=== PATIENT | male | born 1990 | race Caucasian/White ===

== ENCOUNTER 2023-06-22 19:14 | Emergency (ER) | payer OTHER, SELFPAY ==
[2023-06-22 19:19] VITALS: BP 114/84; PULSE 88; RESP 22; TEMP 36.9; O2SAT 99
--- NOTE | 2023-06-22 19:29 | XR_ITS ---
The [address] [address] Patient Name: RADHA PRATT MRN: [id number] date: 1990 Sex: M Assigned Patient Location: ER Current Patient Location: ED.MAIN Accession/Order Number: [id number] Exam Date: 06/22/2023 19:40 Report Date: 06/22/2023 20:51 At the request of: ELISEO JAUREGUI Procedure: XR hand RT min 3V EXAM: XR hand RT min 3V HISTORY: pain right hand COMPARISON: None. TECHNIQUE: 3 view study FINDINGS: There are transverse fractures of the third, fourth, and fifth metacarpals. The fourth metacarpal fracture is comminuted. Third and fourth metacarpal fractures show apex posterior angulation with lateral offset of the distal fracture fragments. Alignment of the fifth metacarpal fracture is anatomic. There is extensive soft tissue trauma. XR/XR hand RT min 3V IMPRESSION: Fractures of the third, fourth, and fifth metacarpals considered to be open. Electronically authenticated by: Morris MCKNIGHT Date: 06/22/2023 20:51
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
[2023-06-22 20:35] LABS: Basophils Percent Auto 0.4 % (0.2-2.0); Eosinophils Absolute Auto 0.2 10^3/uL (0.0-0.7); Eosinophils Percent Auto 2.3 % (0.9-7.0); Hematocrit 43.1 % (42.0-54.0); Hemoglobin 15.1 g/dL (14.0-18.0); Immature Granulocytes Abs Auto 0.04 10^3/uL (0.00-0.03); Immature Granulocytes Pct Auto 0.5 % (0.0-0.5); Lymphocytes Absolute Auto 3.7 10^3/uL (1.2-3.8); Lymphocytes Percent Auto 45.1 % (20.5-60.0); Mean Corpuscular Hemoglobin 31.7 pg (25.9-34.0); Mean Corpuscular Volume 90.4 fL (80.0-94.0); Mean Platelet Volume 9.6 fL (9.5-13.5); Monocytes Absolute Auto 0.8 10^3/uL (0.3-0.8); Monocytes Percent Auto 9.8 % (1.7-12.0); Neutrophils Absolute Auto 3.4 10^3/uL (1.4-6.5); Neutrophils Percent Auto 41.9 % (43.0-75.0); Platelet Count 264 10^3/uL (150-450); Red Blood Count 4.77 10^6/uL (4.70-6.10); Red Cell Distribution Width 12.1 % (11.0-15.0); White Blood Count 8.2 10^3/uL (4.0-11.0)
[2023-06-22 20:44] LABS: Anion Gap 13.2; BUN Creatinine Ratio 14.8; Carbon Dioxide 26.6 mmol/L (21.0-32.0); Chloride 103 mmol/L (98-107); Estimated GFR (African America >60 (>=60); Estimated GFR (Non-African Ame >60 (>=60); Glucose 109 mg/dL (74-106); Potassium 3.8 mmol/L (3.5-5.1); Sodium 139 mmol/L (136-145)
[2023-06-22 20:49] LABS: Partial Thromboplastin Time 25.9 sec (22.3-36.2); Prothrombin Time 10.6 sec (9.0-11.6)
[2023-06-22] MEDS: ADACEL DIPH,PERTUSS(ACELL),TET VAC/PF 0.5 ML ADULT SYRINGE IM (21:09)
[2023-06-22] MEDS: OXYCODONE HCL/ACETAMINOPHEN 5MG/325MG 1 TAB PO (21:09)
[2023-06-22] MEDS: LIDOCAINE HCL 2% PF 100 MG/5 ML VIAL 10 ML INJ (21:11)
[2023-06-22] MEDS: SODIUM CHLORIDE 0.9% IRRIG SOLUTION 1,000 ML BOTTLE 1000 ML IRR (21:12)
[2023-06-22] MEDS: OXYCODONE HCL/ACETAMINOPHEN 5MG/325MG 2 TAB PO (21:17)
--- NOTE | 2023-06-22 21:23 | PC.NURSE ---
Assisted Levi HASTINGS with splinting affected extremity Pt and his mother educated extensively on care for the wound, plans for tomorrow etc. Appointment is schheduled with Dr. Posey at 8am Pt and his mom both educated on pt not eating or drinking after midnight Sending home 2 percocet to go, educated on the administration of these pills as well as the prescriptions that were sent to pharmacy A work note was also written out Pt and his mother denied further needs or questions and are ready for discharge at the time of antibiotic completion
== END 2023-06-22 21:39 | disposition home or self-care (01) ==
PROVIDERS: Personal Emergency Response Attendant; Emergency Provider Internal Medicine
DX: S62.322B Displaced fracture of shaft of third metacarpal bone, right hand, initial encounter for open fracture (principal); V03.00XA Pedestrian on foot injured in collision with car, pick-up truck or van in nontraffic accident, initial encounter; F84.5 Asperger's syndrome; Z23 Encounter for immunization
CPT/HCPCS: 12002; 36415; 73130; 80048; 85025; 85610; 85730; 90471; 90715; 96374; 99285

== ENCOUNTER 2023-06-30 09:39 | Day surgery (SDC) | payer OTHER, SELFPAY ==
[2023-06-30] VITALS (13 sets, daily range): BP systolic 116–140; BP diastolic 75–91; PULSE 78–111; RESP 12–18; TEMP 36.2–36.8; O2SAT 91–98; BMI 31.7
--- NOTE | 2023-06-30 | XR_ITS ---
The [address] [address] Patient Name: RADHA PRATT MRN: [id number] date: 1990 Sex: M Assigned Patient Location: MS Current Patient Location: [facility] Accession/Order Number: [id number] Exam Date: 06/30/2023 20:40 Report Date: 07/01/2023 08:58 At the request of: SAROJ BAUTISTA Procedure: XR hand RT 2V EXAM: XR hand RT 2V HISTORY: intraoperative imaging COMPARISON: Same day TECHNIQUE: 4 intraprocedural images FINDINGS: 4 Intraprocedural images demonstrate reduction and pinning of third fourth and fifth metacarpal fractures. placement of 2 wires across the third metacarpal, 2 wires across the fourth metacarpal with single external fixation wire across the fifth metacarpal XR/XR hand RT 2V IMPRESSION: Reduction and pinning of metacarpal fractures Electronically authenticated by: KEARA SOLIS Date: 07/01/2023 08:58
--- NOTE | 2023-06-30 09:55 | XR_ITS ---
The [address] [address] Patient Name: RADHA PRATT MRN: [id number] date: 1990 Sex: M Assigned Patient Location: RAD Current Patient Location: RAD Accession/Order Number: [id number] Exam Date: 06/30/2023 09:45 Report Date: 06/30/2023 10:34 At the request of: SAROJ BAUTISTA Procedure: XR hand RT min 3V STUDY: XR hand RT min 3V, [id number] HISTORY: Open nondisplaced metacarpal bone right hand COMPARISON: Right hand x-rays 06/22/2023. FINDINGS: Overlying cast material obscures fine bony detail. Similar alignment and degree of displacement at the third and fifth metacarpal fractures. There is worsening dorsal and ulnar displacement of the fourth metacarpal which is now displaced by approximately 4/5 shaft width (previously one third shaft width). The vertical fracture component of the base of the fourth metacarpal remain similar. Overall alignment remains similar. XR/XR hand RT min 3V IMPRESSION: Worsening displacement of the fourth metacarpal fracture. The remaining fractures are similar. Electronically authenticated by: DION SILVA Date: 06/30/2023 10:34
[2023-06-30 11:48] LABS: Basophils Percent Auto 0.5 % (0.2-2.0); Eosinophils Absolute Auto 0.2 10^3/uL (0.0-0.7); Eosinophils Percent Auto 2.1 % (0.9-7.0); Hematocrit 43.5 % (42.0-54.0); Hemoglobin 14.8 g/dL (14.0-18.0); Immature Granulocytes Abs Auto 0.04 10^3/uL (0.00-0.03); Immature Granulocytes Pct Auto 0.5 % (0.0-0.5); Lymphocytes Absolute Auto 3.2 10^3/uL (1.2-3.8); Lymphocytes Percent Auto 39.9 % (20.5-60.0); Mean Corpuscular Hemoglobin 31.1 pg (25.9-34.0); Mean Corpuscular Volume 91.4 fL (80.0-94.0); Mean Platelet Volume 9.5 fL (9.5-13.5); Monocytes Absolute Auto 0.6 10^3/uL (0.3-0.8); Monocytes Percent Auto 7.8 % (1.7-12.0); Neutrophils Percent Auto 49.2 % (43.0-75.0); Platelet Count 313 10^3/uL (150-450); Red Blood Count 4.76 10^6/uL (4.70-6.10); Red Cell Distribution Width 11.9 % (11.0-15.0); White Blood Count 8.1 10^3/uL (4.0-11.0)
--- NOTE | 2023-06-30 12:10 | ECG_ITS ---
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
[2023-06-30 12:21] LABS: Anion Gap 9.5; BUN Creatinine Ratio 17.5; Calcium 9.4 mg/dL (8.5-10.1); Carbon Dioxide 30.2 mmol/L (21.0-32.0); Chloride 102 mmol/L (98-107); Estimated GFR (African America >60 (>=60); Estimated GFR (Non-African Ame >60 (>=60); Glucose 92 mg/dL (74-106); Potassium 3.7 mmol/L (3.5-5.1); Sodium 138 mmol/L (136-145)
[2023-06-30] MEDS: LACTATED RINGER'S SOLUTION 1,000 ML 50 ML IV ×2 (18:17→21:14)
[2023-06-30] MEDS: BUPIVACAINE HCL 0.5% PF 50 MG/10 ML VIAL INJ (20:55)
--- NOTE | 2023-06-30 22:01 | PM.ORPRC ---
Procedure Note Date of procedure: 06/30/23 Pre-op diagnosis: 1. R.3rd metacarpal fracture2. R.4th metacarpal fx.3. R.5th metacarpal fx Post-op diagnosis: same as pre-op Procedure: Operations performed: 1. Right third metacarpal percutaneous pinning 2. Right fourth metacarpal fracture percutaneous pinning 3. Right fifth metacarpal fracture percutaneous pinning 4. Irrigation and debridement right hand wound Operative procedure: After informed consent was obtained the patient was brought to the operating room where a general anesthetic was administered. A well-padded proximal arm tourniquet was placed. Sutures from the prior dorsal hand wound were removed. The right hand was prepped and draped in the usual sterile fashion. Attention was turned closed reduction of the fifth metacarpal fracture. This was performed with manipulation and traction. A 0.625 K wire was placed at the head of the metacarpal and introduced into the metacarpal canal across the fracture site into the base of the metacarpal. X-rays in multiple planes revealed a reduced fracture and appropriate K wire placement. Next the third metacarpal fracture was reduced in a similar fashion. A K wire was placed in the similar fashion through the metacarpal head traversing the fracture. A second K wire was placed on the shaft and x-rays revealed a reduced fracture with appropriate K wire placement. In a similar fashion the fourth metacarpal fracture was reduced and 2 K wires were driven through the head of the metacarpal into the shaft crossing the fracture site to the base of the fourth metacarpal. Final x-rays in multiple planes revealed reduced fractures of the third, fourth, and fifth metacarpals with appropriate K wire placement. The wound traversing the dorsum of the hand was next irrigated and then closed in simple fashion with nylon suture. Sterile dressing was placed. A well-padded volar fiberglass splint was placed. Patient was awakened and brought to the recovery room in stable condition. There were no intraoperative or immediate postoperative complications. Anesthesia: General-LMA Surgeon: Houston Posey Apparel Patternmaker: Elvira Brown Estimated blood loss (mL): 15 Pathology: none sent Condition: stable Disposition: PACU
== END 2023-06-30 23:47 | disposition home or self-care (01) ==
LOC: RAD 17:01 → MS 17:03
PROVIDERS: Visit Provider Orthopaedic Surgery
PROC: (CPT 01820; principal; 2023-06-30 18:00)
DX: S62.306B Unspecified fracture of fifth metacarpal bone, right hand, initial encounter for open fracture (principal); S62.304B Unspecified fracture of fourth metacarpal bone, right hand, initial encounter for open fracture; S62.302B Unspecified fracture of third metacarpal bone, right hand, initial encounter for open fracture; X58.XXXA Exposure to other specified factors, initial encounter
CPT/HCPCS: 01820; 26608 ×3; 36415; 51798; 73120; 73130; 76000; 80048; 85025; 93005; J2704

== ENCOUNTER 2023-07-07 10:08 | Outpatient (OUT) | payer OTHER, SELFPAY ==
--- NOTE | 2023-07-07 | XR_ITS ---
The [address] [address] Patient Name: RADHA RPATT MRN: [id number] date: 1990 Sex: M Assigned Patient Location: RAD Current Patient Location: Accession/Order Number: [id number] Exam Date: 07/07/2023 10:32 Report Date: 07/08/2023 07:26 At the request of: SAROJ BAUTISTA Procedure: XR hand RT min 3V EXAM: XR hand RT min 3V HISTORY: S62.306B, S62.304B, S62.302B COMPARISON: 06/30/2023 TECHNIQUE: Routine views of the XR hand RT min 3V FINDINGS/ XR/XR hand RT min 3V IMPRESSION: 1. Interval pinning of the near-anatomic alignment third through fifth metacarpal fractures. No new fractures are visualized. No evidence for hardware complication. Normal mineralization. 2. Dorsal hand swelling. 3. Normal joint spacing. Electronically authenticated by: NARDA MORRISON Date: 07/08/2023 07:26
== END 2023-07-07 10:09 | disposition home or self-care (01) ==
LOC: RAD 10:09
PROVIDERS: Visit Provider Orthopaedic Surgery
DX: S62.306B Unspecified fracture of fifth metacarpal bone, right hand, initial encounter for open fracture (principal); S62.304B Unspecified fracture of fourth metacarpal bone, right hand, initial encounter for open fracture; S62.302B Unspecified fracture of third metacarpal bone, right hand, initial encounter for open fracture; X58.XXXA Exposure to other specified factors, initial encounter
CPT/HCPCS: 73130

== ENCOUNTER 2023-07-14 09:56 | Outpatient (OUT) | payer OTHER, SELFPAY ==
--- NOTE | 2023-07-14 10:06 | XR_ITS ---
The [address] [address] Patient Name: RADHA PRATT MRN: [id number] date: 1990 Sex: M Assigned Patient Location: RAD Current Patient Location: RAD Accession/Order Number: [id number] Exam Date: 07/14/2023 10:01 Report Date: 07/14/2023 13:35 At the request of: SAROJ BAUTISTA Procedure: XR hand RT min 3V PROCEDURE: XR hand RT min 3V DATE: 07/14/2023 9:01 AM CDT COMPARISONS: 07/07/2023 CLINICAL INDICATION: Open Fracture Of Metacarpal right hand S62.306B FINDINGS: Slightly displaced nonangulated fracture of the third metacarpal again identified. Essentially nonangulated, nondisplaced fracture fourth metacarpal again identified. Minimally angulated minimally displaced irregular transverse fracture fifth metacarpal again identified. Fractures are fixed by longitudinal pins, stable from previous exam Images are limited somewhat by overlying splint material Bone island noted of the distal radius, stable.. XR/XR hand RT min 3V IMPRESSION: Stable postoperative right hand radiographs. Electronically authenticated by: LG NIXON Date: 07/14/2023 13:35
== END 2023-07-14 09:57 | disposition home or self-care (01) ==
LOC: RAD 09:56
PROVIDERS: Visit Provider Orthopaedic Surgery
DX: S62.306B Unspecified fracture of fifth metacarpal bone, right hand, initial encounter for open fracture (principal); S62.304B Unspecified fracture of fourth metacarpal bone, right hand, initial encounter for open fracture; S62.302B Unspecified fracture of third metacarpal bone, right hand, initial encounter for open fracture
CPT/HCPCS: 73130

== ENCOUNTER 2023-08-04 08:07 | Outpatient (OUT) | payer OTHER, SELFPAY ==
--- NOTE | 2023-08-04 08:09 | XR_ITS ---
The [address] [address] Patient Name: RADHA PRATT MRN: [id number] date: 1990 Sex: M Assigned Patient Location: [facility] Current Patient Location: [facility] Accession/Order Number: [id number] Exam Date: 08/04/2023 08:12 Report Date: 08/04/2023 18:51 At the request of: SAROJ BAUTISTA Procedure: XR hand RT min 3V EXAM: XR hand RT min 3V HISTORY: open Nondisplaced Fracture 5th Metacarpal Bone Right Hand . Follow-up study. COMPARISON: 07/14/2023 TECHNIQUE: 3 views of the right hand were obtained. FINDINGS: The hand is in a palmar mold. Postsurgical changes are present, with multiple K wires fixating the fractures of the third fourth and fifth metacarpal bones. Position and alignment of the fracture fragments remain unchanged. There is evidence of very early osseous healing. No additional fracture or dislocation is identified. XR/XR hand RT min 3V IMPRESSION: Early osseous healing of the fixated fractures involving the metacarpal bones. K wires are in place. Electronically authenticated by: AAKASH GROSSMAN Date: 08/04/2023 18:51
== END 2023-08-04 08:08 | disposition home or self-care (01) ==
LOC: RAD 08:07
PROVIDERS: Visit Provider Orthopaedic Surgery
DX: S62.306B Unspecified fracture of fifth metacarpal bone, right hand, initial encounter for open fracture (principal); S62.304B Unspecified fracture of fourth metacarpal bone, right hand, initial encounter for open fracture; S62.302B Unspecified fracture of third metacarpal bone, right hand, initial encounter for open fracture
CPT/HCPCS: 73130

== ENCOUNTER 2023-08-13 13:54 | Outpatient (RCR) | payer OTHER, SELFPAY | END 2023-09-25 15:15 | disposition home or self-care (01) | LOC: OT 13:54 | PROVIDERS: Visit Provider Orthopaedic Surgery | DX: S62.302D Unspecified fracture of third metacarpal bone, right hand, subsequent encounter for fracture with routine healing (principal) | CPT/HCPCS: 97018; 97140; 97166; 97530 ==

== ENCOUNTER 2023-09-01 08:48 | Outpatient (OUT) | payer OTHER, SELFPAY ==
--- NOTE | 2023-09-01 | XR_ITS ---
The [place] [id number] Patient Name: RADHA PRATT MRN: [id number] date: 1990 Sex: M Assigned Patient Location: RAD Current Patient Location: RAD Accession/Order Number: [id number] Exam Date: 09/01/2023 09:03 Report Date: 09/01/2023 21:19 At the request of: SAROJ BAUTISTA Procedure: XR hand RT min 3V EXAM: XR hand RT min 3V HISTORY: open nondisplaced fracture of third metacarpal of right hand COMPARISON: 08-04-2023 FINDINGS: 3 radiographs of the right hand were obtained. Interval removal of percutaneous fixation pins. Again noted, there are minimally displaced fractures of the third metacarpal, fourth metacarpal and fifth metacarpal shafts. There is interval callus and periosteal new bone formation. Mild degenerative changes to the hand. 8 mm sclerotic density in the distal radius, most consistent with a bone island. XR/XR hand RT min 3V IMPRESSION: Minimally displaced fractures of the third metacarpal, fourth metacarpal, and fifth metacarpal shafts. Interval callus and periosteal new bone formation. Electronically authenticated by: NELA HOLT Date: 09/01/2023 21:19
== END 2023-09-01 08:49 | disposition home or self-care (01) ==
LOC: RAD 08:49
PROVIDERS: Visit Provider Orthopaedic Surgery
DX: S62.302B Unspecified fracture of third metacarpal bone, right hand, initial encounter for open fracture (principal); S62.304B Unspecified fracture of fourth metacarpal bone, right hand, initial encounter for open fracture; S62.306B Unspecified fracture of fifth metacarpal bone, right hand, initial encounter for open fracture
CPT/HCPCS: 73130

== ENCOUNTER 2023-10-13 08:46 | Outpatient (OUT) | payer OTHER, SELFPAY ==
--- NOTE | 2023-10-13 | XR_ITS ---
The [address] [address] Patient Name: RADHA PRATT MRN: [id number] date: 1990 Sex: M Assigned Patient Location: RAD Current Patient Location: RAD Accession/Order Number: [id number] Exam Date: 10/13/2023 08:47 Report Date: 10/13/2023 09:26 At the request of: SAROJ BAUTISTA Procedure: XR hand RT min 3V PROCEDURE: XR hand RT min 3V COMPARISON: 09/01/2023 HISTORY: RIGHT HAND PAIN FINDINGS: BONES:Again demonstrated are transverse fractures across the mid diaphysis of the third fourth and fifth metacarpals with increase in bony bridging and bone healing. There is incomplete bony fusion of the third metacarpal. Focal sclerosis of the distal radius, an enostosis SOFT TISSUES:Negative. No visible soft tissue swelling. EFFUSION:None visible. OTHER: Negative. XR/XR hand RT min 3V IMPRESSION: Stable healing fractures of the third fourth and fifth metacarpals with incomplete bony bridging at the third metacarpal fracture Electronically authenticated by: KEARA SOLIS Date: 10/13/2023 09:26
--- OUTSIDE RECORDS SUMMARY | 2023-10-13 08:49 | XMS_ITS | CCD ---
Author Name Unknown Address [address] [place] [address] Organization [facility] Care Team Providers Care Crm Solution Architect Name Role Phone House DO, Sr Blanca Stephenson Primary Care Provider OTONIEL RAYMOND Referring Unavailable HOUSE, SR BLANCA Stephenson Primary Care Unavailable OTONIEL RAYMOND Referring Unavailable HOUSE, SR BLANCA Stephenson Primary Care Unavailable MISC, DR BERMUDEZ Admitting Unavailable MISC, DR BERMUDEZ Attending Unavailable REQUEST, DR SIMPSON LISTED Primary Care Unavaila ble MISC, DR BERMUDEZ Consulting Unavailable HOUSE, DR RIOS Admitting Unavailable HOUSE, DR RIOS Attending Unavailable HOUSE, DR RIOS Primary Care Unavailable HOUSE, DR RIOS Consulting Unavailable Problems Active Problems Problem Classification Problem Date Documented Da te Episodic/Chronic Anxiety disorders (1 source) Mixed obsessional thoughts and acts; Translations: [MIXED OBSESSIONAL THOUGHTS AND ACTS] Onset: 02-20-2022 Chronic Disorders usually diagnosed in infancy, childhood, or adolescence (5 sources) Disinhibited attachment disorder of childhood; 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] Onset: 02-16-2022 Chronic Past or Other Problems Problem Classification Problem Date Documented Da te Episodic/Chronic Developmental disorders (1 source) Borderline intellectual functioning; Translations: [BORDERLINE INTELLECTUAL FUNCTIONING] Onset: 02-20-2022 Episodic Other aftercare (1 source) 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 Teena Aguilar Basophils/100 WBC (Bld) 0.5 % Normal 0.2-2.0 [facility] Comment on above: Performed By: #### C BC #### [facility] [address] [place] [address] Dr. Teena Aguilar EO # 0.2 103/ul Normal 0.0-0.7 [facility] Comment on above: Performed By: #### C BC #### [facility] [address] [place] [address] Dr. Teena Aguilar Eosinophils/100 WBC (Bld) 3.3 % Normal 0.9-7.0 [facility] Comment on above: Performed By: #### C BC #### [facility] [address] [place] [address] Dr. Teena Aguilar Erythrocyte distribution width (RBC) [Ratio] 12.0 % Normal 11.0-15.0 [facility] Comment on above: Performed By: #### C BC #### [facility] [address] [place] [address] Dr. Teena Aguilar Hematocrit (Bld) [Volume fraction] 43.2 % Normal 42.0-54.0 [facility] Comment on above: Performed By: #### C BC #### [facility] [address] [place] [address] Dr. Teena Aguilar Hemoglobin (Bld) [Mass/Vol] 15.1 g/dL Normal 14.0-18.0 [facility] Comment on above: Performed By: #### C BC #### [facility] [address] [place] [address] Dr. Teena Aguilar IG # 0.01 10e3/ul Normal 0.00-0.03 [facility] Comment on above: Performed By: #### C BC #### [facility] [address] [place] [address] Dr. Teena Aguilar IG % 0.2 % Normal 0.0-0.5 [facility] Comment on above: Performed By: #### C BC #### [facility] [address] [place] [address] Dr. Teena Aguilar LYMPH # 3.1 103/ul Normal 1.2-3.8 [facility] Comment on above: Performed By: #### C BC #### [facility] [address] [place] [address] Dr. Teena Aguilar Lymphocytes/100 WBC (Bld) 49.1 % Normal 20.5-60.0 [facility] Comment on above: Performed By: #### C BC #### [facility] [address] [place] [address] Dr. Teena Aguilar MANUAL DIFF REQ NO Normal [facility] Comment on above: Performed By: #### C BC #### [facility] [address] [place] [address] Dr. Teena Aguilar MCH (RBC) [Entitic mass] 31.1 pg Normal 25.9-34.0 [facility] Comment on above: Performed By: #### C BC #### [facility] [address] [place] [address] Dr. Teena Aguilar MCHC (RBC) [Mass/Vol] 35.0 g/dL Normal 29.9-35.2 [facility] Comment on above: Performed By: #### C BC #### [facility] [address] [place] [address] Dr. Teena Aguilar MCV (RBC) [Entitic vol] 89.1 fL Normal 80.0-94.0 [facility] Comment on above: Performed By: #### C BC #### [facility] [address] [place] [address] Dr. Teena Aguilar MONO # 0.4 103/ul Normal 0.3-0.8 [facility] Comment on above: Performed By: #### C BC #### [facility] [address] [place] [address] Dr. Teena Aguilar Monocytes/100 WBC (Bld) 6.8 % Normal 1.7-12.0 [facility] Comment on above: Performed By: #### C BC #### [facility] [address] [place] [address] Dr. Teena Aguilar NEUT # 2.6 103/ul Normal 1.4-6.5 [facility] Comment on above: Performed By: #### C BC #### [facility] [address] [place] [address] Dr. Teena Aguilar Neutrophils/100 WBC (Bld) 40.1 % Critically low 43.0-7 5.0 [facility] Comment on above: Performed By: #### C BC #### [facility] [address] [place] [address] Dr. Teena Aguilar Platelet mean volume (Bld) [Entitic vol] 9.7 fL Normal 9.5-13.5 [facility] Comment on above: Performed By: #### C BC #### [facility] [address] [place] [address] Dr. Teena Aguilar PLT 272 103/ul Normal 150-450 [facility] Comment on above: Performed By: #### C BC #### [facility] [address] [place] [address] Dr. Teena Aguilar RBC 4.85 106/ul Normal 4.70-6.10 [facility] Comment on above: Performed By: #### C BC #### [facility] [address] [place] [address] Dr. Teena Aguilar WBC 6.3 103/ul Normal 4.0-11.0 [facility] Comment on above: Performed By: #### C BC #### [facility] [address] [place] [address] Dr. Teena Aguilar PROF 14(COMP METB)on 023 Albumin [Mass/Vol] 3.9 g/dL Normal 3.4-5.0 [facility] Comment on above: Performed By: #### T 4, TSH, CMP #### [facility] [address] [place] [address] Dr. Teena Aguilar Albumin/Globulin [Mass ratio] 1.0 {ratio} Normal [facility] Comment on above: Performed By: #### T 4, TSH, CMP #### [facility] [address] [place] [address] Dr. Teena Aguilar ALP [Catalytic activity/Vol] 66 U/L Normal 46-116 [facility] Comment on above: Performed By: #### T 4, TSH, CMP #### [facility] [address] [place] [address] [address] Teena Aguilar ALT [Catalytic activity/Vol] 34 U/L Normal 16-63 [facility] Comment on above: Performed By: #### T 4, TSH, CMP #### [facility] [address] [place] [address] [address] Teena Aguilar Anion gap [Moles/Vol] 12.6 mmol/L Normal [facility] Comment on above: Performed By: #### T 4, TSH, CMP #### [facility] [address] [place] [address] Dr. Teena Aguilar AST [Catalytic activity/Vol] 16 U/L Normal 15-37 [facility] Comment on above: Performed By: #### T 4, TSH, CMP #### [facility] [address] [place] [address] Dr. Teena Aguilar Bilirubin [Mass/Vol] 0.3 mg/dL Normal 0.2-1.0 [facility] Comment on above: Performed By: #### T 4, TSH, CMP #### [facility] [address] [place] [address] Dr. Teena Aguilar Calcium [Mass/Vol] 9.3 mg/dL Normal 8.5-10.1 [facility] Comment on above: Performed By: #### T 4, TSH, CMP #### [facility] [address] [place] [address] Dr. Teena Aguilar Chloride [Moles/Vol] 102 mmol/L Normal 98-107 [facility] Comment on above: Performed By: #### T 4, TSH, CMP #### [facility] [address] [place] [address] Dr. Teena Aguilar CO2 [Moles/Vol] 25.2 mmol/L Normal 21.0-32.0 [facility] Comment on above: Performed By: #### T 4, TSH, CMP #### [facility] [address] [place] [address] [address] Teena Aguilar Creatinine [Mass/Vol] 0.95 mg/dL Normal 0.70-1.30 [facility] Comment on above: Performed By: #### T 4, TSH, CMP #### [facility] [address] [place] [address] [address] Teena Aguilar EGFR-AF ENGLISH >60 Normal >=60 [facility] Comment on above: Performed By: #### T 4, TSH, CMP #### [facility] [address] [place] [address] [address] Teena Aguilar EGFR-NON AF ENGLISH >60 Normal >=60 [facility] Comment on above: Performed By: #### T 4, TSH, CMP #### [facility] [address] [place] [address] [address] Teena Aguilar Globulin (S) [Mass/Vol] 3.9 g/dL Normal [facility] Comment on above: Performed By: #### T 4, TSH, CMP #### [facility] [address] [place] [address] Dr. Teena Aguilar Glucose [Mass/Vol] 153 mg/dL Critically high 74-106 [facility] Comment on above: Performed By: #### T 4, TSH, CMP #### [facility] [address] [place] [address] [address] Teena Aguilar Potassium [Moles/Vol] 3.8 mmol/L Normal 3.5-5.1 [facility] Comment on above: Performed By: #### T 4, TSH, CMP #### [facility] [address] [place] [address] [address] Teena Aguilar Protein [Mass/Vol] 7.8 g/dL Normal 6.4-8.2 [facility] Comment on above: Performed By: #### T 4, TSH, CMP #### [facility] [address] [place] [address] Dr. Teena Aguilar Sodium [Moles/Vol] 136 mmol/L Normal 136-145 [facility] Comment on above: Performed By: #### T 4, TSH, CMP #### [facility] [address] [place] [address] Dr. Teena Aguilar Urea nitrogen [Mass/Vol] 22.0 mg/dL Critically high 7.0-18 .0 [facility] Comment on above: Performed By: #### T 4, TSH, CMP #### [facility] [address] [place] [address] Dr. Teena Aguilar Urea nitrogen/Creatinine [Mass ratio] 23.2 mg/mg Normal [facility] Comment on above: Performed By: #### T 4, TSH, CMP #### [facility] [address] [place] [address] Dr. Teena Aguilar T4on 01-10-2023 T4 [Mass/Vol] 4.20 ug/dL Critically low 4.50-12.10 [facility] Comment on above: Performed By: #### T 4, TSH, CMP #### [facility] [address] [place] [address] Dr. Teena Aguilar TSHon 01-10-2023 TSH 3.652 uIU/mL Normal 0.358-3.740 [facility] Comment on above: Performed By: #### T 4, TSH, CMP #### [facility] [address] [place] [address] Dr. Teena Aguilar Miscellaneouson 05-17-2022 Send Out Report (NOTE) Normal [facility] Comment on above: Result Comment: Catecholamines Fractionated (Epinephrine, Norepinephrine), Plasma Epinephrine See Note pg/mL (Ref Interval: 10-200) Unable to quantitate due to unknown interfering substance(s) in the patient specimen. The test results for this specimen indicate the presence of interfering substances. Antihypertensive medications such as labetalol hinder the measurement of catecholamines in this assay. Quantity not sufficient to repeat test. Norepinephrine 184 pg/mL (Ref Interval: 80-520) Catecholamine Interpretation See Note INTERPRETIVE INFORMATION: Catecholamine Epi/Nor, Plasma Small increases in catecholamines (less than 2 times the upper reference limit) usually are the result of physiological stimuli, drugs, or improper specimen collection. Significant elevation of one or more catecholamines (2 or more times the upper reference limit) is associated with an increased probability of a neuroendocrine tumor. Measurement of plasma or urine fractionated metanephrines provides better diagnostic sensitivity than measurement of catecholamines. Higher catecholamine concentrations are observed in specimens collected from upright or standing adults. Epinephrine may be increased by approximately 20 percent; and norepinephrine increased up to 700 pg/mL. This test was developed and its performance characteristics determined by [facility] [employer]. It has not been cleared or approved by the [place] Food and Drug Administration. This test was performed in a CLIA certified laboratory and is intended for clinical purposes. IAUP Performed By: #### C MIS #### [facility] [address] [place] [address] Garbage Man: Yahir Fitzgerald MD Miscellaneouson 05-08-2022 Test Name [id number] Normal [facility] Comment on above: Performed By: #### C MIS #### [facility] [address] [place] [address] Garbage Man: Yahir Fitzgerald MD Gabapentinon 05-07-2022 Gabapentin <0.5 Low 2.0-20.0 [facility] Comment on above: Result Comment: (NOT E) INTERPRETIVE INFORMATION: Gabapentin Therapeutic Range: 2 - 20 ug/mL Toxic: Not well established Pharmacokinetics of gabapentin vary widely among patients, particularly those with compromised renal function. Adverse effects may include somnolence, dizziness, ataxia, and fatigue. This test was developed and its performance characteristics determined by [facility] [employer]. It has not been cleared or approved by the [place] Food and Drug Administration. This test was performed in a CLIA certified laboratory and is intended for clinical purposes. Performed By: [facility] [address] [place] [address] Furniture Repair Technician: Marin Panchal MD, PhD Performed By: #### CRIS ARELLANO #### [facility] [address] [place], [place] [id number] Garbage Man: Tam Givens MD #### ACTH #### [facility] [address] [place] [address] Garbage Man: Doc Garces MD Serotoninon 05-07-2022 Serotonin <10 Low 50-220 [facility] Comment on above: Result Comment: (NOT E) TEST INFORMATION: Serotonin, Serum This test was developed and its performance characteristics determined by [employer]. It has not been cleared or approved by the [place] Food and Drug Administration. This test was performed in a CLIA certified laboratory and is intended for clinical purposes. Performed By: [facility] [employer] [address] [place] [address] Furniture Repair Technician: Marin Panchal MD, PhD Performed By: #### A CRIS CHENG #### [facility] [address] [place] [address] Garbage Man: Tam Givens MD #### ACTH #### [address] [id number] Garbage Man: Doc Garces MD Adrenocorticotropinon 2021 Adrenocorticotropin 7 pg/mL Normal 7-69 [facility] Comment on above: Performed By: #### A CRIS CHENG #### [facility] [address] [place], [place] [id number] Garbage Man: Tam Givens MD #### ACTH #### [address] [id number] Garbage Man: Doc Garces MD CBC AUTO DIFFon 02-16-2022 BASO # 0.0 103/ul Normal 0.0-0.1 [facility] Comment on above: Performed By: #### C BC #### [facility] [address] [place] [address] Dr. Teena Aguilar Basophils/100 WBC (Bld) 0.5 % Normal 0.2-2.0 [facility] Comment on above: Performed By: #### C BC #### [facility] [address] [place] [address] Dr. Teena Aguilar EO # 0.2 103/ul Normal 0.0-0.7 [facility] Comment on above: Performed By: #### C BC #### [facility] [address] [place] [address] Dr. Teena Aguilar Eosinophils/100 WBC (Bld) 3.0 % Normal 0.9-7.0 [facility] Comment on above: Performed By: #### C BC #### [facility] [address] [place] [address] Dr. Teena Aguilar Erythrocyte distribution width (RBC) [Ratio] 12.3 % Normal 11.0-15.0 [facility] Comment on above: Performed By: #### C BC #### [facility] [address] [place] [address] Dr. Teena Aguilar Hematocrit (Bld) [Volume fraction] 45.2 % Normal 42.0-54.0 [facility] Comment on above: Performed By: #### C BC #### [facility] [address] [place] [address] Dr. Teena Aguilar Hemoglobin (Bld) [Mass/Vol] 15.1 g/dL Normal 14.0-18.0 [facility] Comment on above: Performed By: #### C BC #### [facility] [address] [place] [address] Dr. Teena Aguilar IG # 0.01 10e3/ul Normal 0.00-0.03 [facility] Comment on above: Performed By: #### C BC #### [facility] [address] [place] [address] Dr. Teena Aguilar IG % 0.2 % Normal 0.0-0.5 [facility] Comment on above: Performed By: #### C BC #### [facility] [address] [place] [address] Dr. Teena Aguilar LYMPH # 3.0 103/ul Normal 1.2-3.8 [facility] Comment on above: Performed By: #### C BC #### [facility] [address] [place] [address] Dr. Teena Aguilar Lymphocytes/100 WBC (Bld) 50.0 % Normal 20.5-60.0 [facility] Comment on above: Performed By: #### C BC #### [facility] [address] [place] [address] Dr. Teena Aguilar MANUAL DIFF REQ NO Normal [facility] Comment on above: Performed By: #### C BC #### [facility] [address] [place] [address] Dr. Teena Aguilar MCH (RBC) [Entitic mass] 30.4 pg Normal 25.9-34.0 [facility] Comment on above: Performed By: #### C BC #### [facility] [address] [place] [address] Dr. Teena Aguilar MCHC (RBC) [Mass/Vol] 33.4 g/dL Normal 29.9-35.2 [facility] Comment on above: Performed By: #### C BC #### [facility] [address] [place] [address] Dr. Teena Aguilar MCV (RBC) [Entitic vol] 91.1 fL Normal 80.0-94.0 [facility] Comment on above: Performed By: #### C BC #### [facility] [address] [place] [address] Dr. Teena Aguilar MONO # 0.5 103/ul Normal 0.3-0.8 [facility] Comment on above: Performed By: #### C BC #### [facility] [address] [place] [address] Dr. Teena Aguilar Monocytes/100 WBC (Bld) 8.6 % Normal 1.7-12.0 [facility] Comment on above: Performed By: #### C BC #### [facility] [address] [place] [address] Dr. Teena Aguilar NEUT # 2.3 103/ul Normal 1.4-6.5 [facility] Comment on above: Performed By: #### C BC #### [facility] [address] [place] [address] Dr. Teena Aguilar Neutrophils/100 WBC (Bld) 37.7 % Critically low 43.0-7 5.0 [facility] Comment on above: Performed By: #### C BC #### [facility] [address] [place] [address] Dr. Teena Aguliar Platelet mean volume (Bld) [Entitic vol] 9.2 fL Critically low 9.5-13.5 [facility] Comment on above: Performed By: #### C BC #### [facility] [address] [place] [address] Dr. Teena Aguilar PLT 298 103/ul Normal 150-450 [facility] Comment on above: Performed By: #### C BC #### [facility] [address] [place] [address] Dr. Teena Aguilar RBC 4.96 106/ul Normal 4.70-6.10 [facility] Comment on above: Performed By: #### C BC #### [facility] [address] [place] [address] Dr. Teena Aguilar WBC 6.0 103/ul Normal 4.0-11.0 [facility] Comment on above: Performed By: #### C BC #### [facility] [address] [place] [address] Dr. Teena Aguilar GLYCOHEMOGLOBIN A1Con 2021 ADA RECOMMENDATION SEE BELOW Normal [facility] Comment on above: Result Comment: ADA RECOMMENDED LIMIT 4.0 - 6.0 ADA THERAPEUTIC TARGET < 7.0 ACTION SUGGESTED > 7.0 Performed By: #### A 1C #### [facility] [address] [place] [address] Dr. Teena Aguilar Glucose [Mass/Vol] 111 mg/dL Normal [facility] Comment on above: Performed By: #### A 1C #### [facility] [address] [place] [address] Dr. Teena Aguilar HbA1c (Bld) [Mass fraction] 5.5 % Normal 4.5-6.2 [facility] Comment on above: Performed By: #### A 1C #### [facility] [address] [place] [address] Dr. Teena Aguilar LIPID PROFILEon 02-16-2022 CHOL-HDL RATIO NORM SEE BELOW Normal [facility] Comment on above: Result Comment: 3.3 - 4.4 LOW RISK 4.4 - 7.1 AVERAGE RISK 7.1 - 11.0 MODERATE RISK >11.0 HIGH RISK Performed By: #### B MP, LIPID #### [facility] [address] [place] [address] Dr. Teena Aguilar Cholesterol [Mass/Vol] 205 mg/dL Critically high <=200 [facility] Comment on above: Performed By: #### B MP, LIPID #### [facility] [address] [place] [address] [address] Teena Aguilar Cholesterol in HDL [Mass/Vol] 49 mg/dL Normal 40-60 [facility] Comment on above: Performed By: #### B MP, LIPID #### [facility] [address] [address] [address] Teena Aguilar Cholesterol in LDL [Mass/Vol] 89.0 mg/dL Normal [facility] Comment on above: Performed By: #### B MP, LIPID #### [facility] [address] [place] [address] Dr. Teena Aguilar Cholesterol.total/Cholest neeraj in HDL [Mass ratio] 4.2 {ratio} Normal [facility] Comment on above: Performed By: #### B MP, LIPID #### [facility] [address] [place] [address] Dr. Teena Aguilar HDL NORMAL > or = 60 mg/dl - LOW CARDIOVASCULAR RISK <40 mg/dl - HIGH CARDIOVASCULAR RISK Normal [facility] Comment on above: Performed By: #### B MP, LIPID #### [facility] [address] [place] [address] Dr. Teena Aguilar LDL CALC NORMAL SEE BELOW Normal [facility] Comment on above: Result Comment: <100 mg/dl OPTIMAL 100 - 129 mg/dl NEAR OR ABOVE OPTIMAL 130 - 159 mg/dl BORDERLINE HIGH 160 - 189 mg/dl HIGH >190 mg/dl VERY HIGH Performed By: #### B MP, LIPID #### [facility] [address] [place] [address] Dr. Teena Aguilar Triglyceride [Mass/Vol] 335 mg/dL Critically high <=150 [facility] Comment on above: Performed By: #### B MP, LIPID #### [facility] [address] [place] [address] Dr. Teena Aguilar VLDL CALC 67.0 mg/dL Normal [facility] Comment on above: Performed By: #### B MP, LIPID #### [facility] [address] [place] [address] Dr. Teena Aguilar PROF CHEM 8 (BAS METB)on Anion gap [Moles/Vol] 11.0 mmol/L Normal [facility] Comment on above: Performed By: #### B MP, LIPID #### [facility] [address] [place] [address] Dr. Teena Aguilar Calcium [Mass/Vol] 9.1 mg/dL Normal 8.5-10.1 [facility] Comment on above: Performed By: #### B MP, LIPID #### [facility] [address] [place] [address] Dr. Teena Aguilar Chloride [Moles/Vol] 102 mmol/L Normal 98-107 [facility] Comment on above: Performed By: #### B MP, LIPID #### [facility] [address] [place] [address] Dr. Teena Aguilar CO2 [Moles/Vol] 30.3 mmol/L Normal 21.0-32.0 [facility] Comment on above: Performed By: #### B MP, LIPID #### [facility] [address] [place] [address] Dr. Teena Aguilar Creatinine [Mass/Vol] 0.96 mg/dL Normal 0.70-1.30 [facility] Comment on above: Performed By: #### B MP, LIPID #### [facility] [address] [place] [address] Dr. Teena Aguilar EGFR-AF ENGLISH >60 Normal >=60 [facility] Comment on above: Performed By: #### B MP, LIPID #### [facility] [address] [place] [address] Dr. Teena Aguilar EGFR-NON AF ENGLISH >60 Normal >=60 [facility] Comment on above: Performed By: #### B MP, LIPID #### [facility] [address] [place] [address] Dr. Teena Aguilar Glucose [Mass/Vol] 100 mg/dL Normal 74-106 [facility] Comment on above: Performed By: #### B MP, LIPID #### [facility] [address] [place] [address] Dr. Teena Aguilar Potassium [Moles/Vol] 4.3 mmol/L Normal 3.5-5.1 [facility] Comment on above: Performed By: #### B MP, LIPID #### [facility] [address] [address] [address] Teena Aguilar Sodium [Moles/Vol] 139 mmol/L Normal 136-145 [facility] Comment on above: Performed By: #### B MP, LIPID #### [facility] [address] [address] [address] Teena Aguilar Urea nitrogen [Mass/Vol] 19.0 mg/dL Critically high 7.0-18 .0 [facility] Comment on above: Performed By: #### B MP, LIPID #### [facility] [address] [address] [address] Teena Aguilar Urea nitrogen/Creatinine [Mass ratio] 19.8 mg/mg Normal [facility] Comment on above: Performed By: #### B MP, LIPID #### [facility] [address] [address] [address] Teena Aguilar Encounters Encounter Date Encounter Type Care Provider Facility Start: 01-19-2023 Encounter for genera l adult medical examination without abnormal findings DR BLANCA KUMAR [facility] Start: 01-10-2023 End: 01-11-[address] BLANCA KUMAR Facility:[facility] Start: 01-10-2023 End: 01-11-2023 Encounter for general adult medical examination without abnormal findings DR BLANCA KUMAR Facility:[facility] Start: 05-08-2022 End: 05-09-2022 [facility]ulatory [facility] Start: 05-08-2022 End: 05-08-2022 Subsequent hospital visit by physician Sr Kumar DO Work Phone: [facility] Start: 05-03-2022 End: 05-04-2022 ambulatory [facility] Start: 02-16-2022 End: 02-17-[address] DOCTOR WEST Facility:[facility] Plan of Treatment Date Care Activity Detail Author Start: 06-06-2022 Influenza vaccination Flu vaccine (# 1) [facility] Start: 2008 DTaP/Tdap/Td vaccine (1 - Tdap) DTaP/Tdap/Td vaccine (1 - Tdap) [employer] [facility] Start: 1989 COVID-19 Vaccine (#1) COVID-19 Vaccine (#1) [facility] End: 05-08-2022 MISCELLANEOUS TESTING [employer] Phone: Comment on above: Once for 1 Occurrenc es starting 05/08/2022 until 05/08/2022 Payers Date Payer Category Payer Unknown [id number] 1989 Unknown [id number] 1989 Unknown [id number] 1989 Unknown [id number] 1959 Private Health Insurance [id number] 1959 Unknown [id number] Social History Date Type Detail Facility Tobacco smoking stat [facility] Tobacco smoking consumption unknown [employer] Phone: Start: 1989 Sex Assigned At Not on file B ON [employer] Phone: Summary Purpose Family History No Family History Records FoundNo Family History Records Found Advance Directives No Advanced Directives Records FoundNo Advanced Directives Records Found Additional Source Comments Care Teams (unrecognized sec tion and content) [employer] Relationship Specialty Start Date End Date Sr Blanca Kumar DO [address] [place] [address] PCP - General Family Medicine 05/03/22 (unrecognized sect ion and content) No Status Records FoundNo Status Records Found INFORMATION SOURCE (unrecogn ized section and content) DATE CREATED AUTHOR 05/18/2022 [facility] DATE CREATED AUTHOR AUTHOR'S ESSIE BAXTER 01/21/2023 [facility] FOR RECORDS PERTAINING TO PATIENTS WHO ARE OR HAVE BEEN ENROLLED IN A CHEMICAL DEPENDENCY/SUBSTANCEABUSE PROGRAM, SOME INFORMATION MAY BE OMITTED. This clinical summary was aggregated from multiple sources. Caution should be exercised in using it in the provision of clinical care. This summary normalizes information from multiple sources, and as a consequence, information in this document may materially change the coding, format and clinical context of patient data. In addition, data may be omitted in some cases. CLINICAL DECISIONS SHOULD BE BASED ON THE PRIMARY CLINICAL RECORDS. [employer] [facility]. provides no warranty or guarantee of the accuracy or completeness of information in this document.
== END 2023-10-13 08:47 | disposition home or self-care (01) ==
LOC: RAD 08:46
PROVIDERS: Visit Provider Orthopaedic Surgery
DX: S62.306D Unspecified fracture of fifth metacarpal bone, right hand, subsequent encounter for fracture with routine healing (principal); S62.304D Unspecified fracture of fourth metacarpal bone, right hand, subsequent encounter for fracture with routine healing; S62.302D Unspecified fracture of third metacarpal bone, right hand, subsequent encounter for fracture with routine healing
CPT/HCPCS: 73130

== ENCOUNTER 2024-01-31 10:22 | Outpatient (OUT) | payer OTHER, SELFPAY ==
--- OUTSIDE RECORDS SUMMARY | 2024-01-31 10:25 | XMS_ITS | CCD ---
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 Teena Aguilar Basophils/100 WBC (Bld) 0.5 % Normal 0.2-2.0 [facility] Comment on above: Performed By: #### C BC #### [facility] [address] [place] [address] Dr. Teena Aguilar EO # 0.2 103/ul Normal 0.0-0.7 [facility] Comment on above: Performed By: #### C BC #### [facility] [address] [place] [address] Dr. Teena Aguilar Eosinophils/100 WBC (Bld) 3.3 % Normal 0.9-7.0 [facility] Comment on above: Performed By: #### C BC #### [facility] [address] [place] [address] Dr. Teena Aguilar Erythrocyte distribution width (RBC) [Ratio] 12.0 % Normal 11.0-15.0 [facility] Comment on above: Performed By: #### C BC #### [facility] [address] [place] [address] Dr. Teena Aguilar Hematocrit (Bld) [Volume fraction] 43.2 % Normal 42.0-54.0 [facility] Comment on above: Performed By: #### C BC #### [facility] [address] [place] [address] Dr. Teena Aguilar Hemoglobin (Bld) [Mass/Vol] 15.1 g/dL Normal 14.0-18.0 [facility] Comment on above: Performed By: #### C BC #### [facility] [address] [place] [address] Dr. Teena Aguilar IG # 0.01 10e3/ul Normal 0.00-0.03 [facility] Comment on above: Performed By: #### C BC #### [facility] [address] [place] [address] Dr. Teena Aguilar IG % 0.2 % Normal 0.0-0.5 [facility] Comment on above: Performed By: #### C BC #### [facility] [address] [place] [address] Dr. Teena Aguilar LYMPH # 3.1 103/ul Normal 1.2-3.8 [facility] Comment on above: Performed By: #### C BC #### [facility] [address] [place] [address] Dr. Teena Aguilar Lymphocytes/100 WBC (Bld) 49.1 % Normal 20.5-60.0 [facility] Comment on above: Performed By: #### C BC #### [facility] [address] [place] [address] Dr. Teena Aguilar MANUAL DIFF REQ NO Normal [facility] Comment on above: Performed By: #### C BC #### [facility] [address] [place] [address] Dr. Teena Aguilar MCH (RBC) [Entitic mass] 31.1 pg Normal 25.9-34.0 [facility] Comment on above: Performed By: #### C BC #### [facility] [address] [place] [address] Dr. Teena Aguilar MCHC (RBC) [Mass/Vol] 35.0 g/dL Normal 29.9-35.2 [facility] Comment on above: Performed By: #### C BC #### [facility] [address] [place] [address] Dr. Teena Aguilar MCV (RBC) [Entitic vol] 89.1 fL Normal 80.0-94.0 [facility] Comment on above: Performed By: #### C BC #### [facility] [address] [place] [address] Dr. Teena Aguilar MONO # 0.4 103/ul Normal 0.3-0.8 [facility] Comment on above: Performed By: #### C BC #### [facility] [address] [place] [address] Dr. Teena Aguilar Monocytes/100 WBC (Bld) 6.8 % Normal 1.7-12.0 [facility] Comment on above: Performed By: #### C BC #### [facility] [address] [place] [address] Dr. Teena Aguilar NEUT # 2.6 103/ul Normal 1.4-6.5 [facility] Comment on above: Performed By: #### C BC #### [facility] [address] [place] [address] Dr. Teena Aguilar Neutrophils/100 WBC (Bld) 40.1 % Critically low 43.0-7 5.0 [facility] Comment on above: Performed By: #### C BC #### [facility] [address] [place] [address] Dr. Teena Aguilar Platelet mean volume (Bld) [Entitic vol] 9.7 fL Normal 9.5-13.5 [facility] Comment on above: Performed By: #### C BC #### [facility] [address] [place] [address] Dr. Teena Aguilar PLT 272 103/ul Normal 150-450 [facility] Comment on above: Performed By: #### C BC #### [facility] [address] [place] [address] Dr. Teena Aguilar RBC 4.85 106/ul Normal 4.70-6.10 [facility] Comment on above: Performed By: #### C BC #### [facility] [address] [place] [address] Dr. Teena Aguilar WBC 6.3 103/ul Normal 4.0-11.0 [facility] Comment on above: Performed By: #### C BC #### [facility] [address] [place] [address] Dr. Teena Aguilar PROF 14(COMP METB)on 023 Albumin [Mass/Vol] 3.9 g/dL Normal 3.4-5.0 [facility] Comment on above: Performed By: #### T 4, TSH, CMP #### [facility] [address] [place] [address] Dr. Teena Aguilar Albumin/Globulin [Mass ratio] 1.0 {ratio} Normal [facility] Comment on above: Performed By: #### T 4, TSH, CMP #### [facility] [address] [place] [address] Dr. Teena Aguilar ALP [Catalytic activity/Vol] 66 U/L Normal 46-116 [facility] Comment on above: Performed By: #### T 4, TSH, CMP #### [facility] [address] [place] [address] Dr. Teena Aguilar ALT [Catalytic activity/Vol] 34 U/L Normal 16-63 [facility] Comment on above: Performed By: #### T 4, TSH, CMP #### [facility] [address] [place] [address] Dr. Teena Aguilar Anion gap [Moles/Vol] 12.6 mmol/L Normal Th e [facility] Comment on above: Performed By: #### T 4, TSH, CMP #### [facility] [address] [place] [address] Dr. Teena Aguilar AST [Catalytic activity/Vol] 16 U/L Normal 15-37 [facility] Comment on above: Performed By: #### T 4, TSH, CMP #### [facility] [address] [place] [address] Dr. Teena Aguilar Bilirubin [Mass/Vol] 0.3 mg/dL Normal 0.2-1.0 [facility] Comment on above: Performed By: #### T 4, TSH, CMP #### [facility] [address] [place] [address] Dr. Teena Aguilar Calcium [Mass/Vol] 9.3 mg/dL Normal 8.5-10.1 [facility] Comment on above: Performed By: #### T 4, TSH, CMP #### [facility] [address] [place] [address] Dr. Teena Aguilar Chloride [Moles/Vol] 102 mmol/L Normal 98-107 [facility] Comment on above: Performed By: #### T 4, TSH, CMP #### [facility] [address] [place] [address] Dr. Teena Aguilar CO2 [Moles/Vol] 25.2 mmol/L Normal 21.0-32.0 [facility] Comment on above: Performed By: #### T 4, TSH, CMP #### [facility] [address] [place] [address] Dr. Teena Aguilar Creatinine [Mass/Vol] 0.95 mg/dL Normal 0.70-1.30 [facility] Comment on above: Performed By: #### T 4, TSH, CMP #### [facility] [address] [place] [address] [address] Teena Aguilar EGFR-AF ROMANIAN >60 Normal >=60 [facility] Comment on above: Performed By: #### T 4, TSH, CMP #### [facility] [address] [place] [address] [address] Teena Aguilar EGFR-NON AF ROMANIAN >60 Normal >=60 [facility] Comment on above: Performed By: #### T 4, TSH, CMP #### [facility] [address] [place] [address] [address] Teena Aguilar Globulin (S) [Mass/Vol] 3.9 g/dL Normal [facility] Comment on above: Performed By: #### T 4, TSH, CMP #### [facility] [address] [place] [address] Dr. Teena Aguilar Glucose [Mass/Vol] 153 mg/dL Critically high 74-106 [facility] Comment on above: Performed By: #### T 4, TSH, CMP #### [facility] [address] [place] [address] [address] Teena Aguilar Potassium [Moles/Vol] 3.8 mmol/L Normal 3.5-5.1 [facility] Comment on above: Performed By: #### T 4, TSH, CMP #### [facility] [address] [place] [address] Dr. Teena Aguilar Protein [Mass/Vol] 7.8 g/dL Normal 6.4-8.2 [facility] Comment on above: Performed By: #### T 4, TSH, CMP #### [facility] [address] [place] [address] [address] Teena Aguilar Sodium [Moles/Vol] 136 mmol/L Normal 136-145 [facility] Comment on above: Performed By: #### T 4, TSH, CMP #### [facility] [address] [address] [address] Teena Aguilar Urea nitrogen [Mass/Vol] 22.0 mg/dL Critically high 7.0-18 .0 [facility] Comment on above: Performed By: #### T 4, TSH, CMP #### [facility] [address] [place] [address] [address] Teena Aguilar Urea nitrogen/Creatinine [Mass ratio] 23.2 mg/mg Normal [facility] Comment on above: Performed By: #### T 4, TSH, CMP #### [facility] [address] [address] [address] Teena Aguilar T4on 01-10-2023 T4 [Mass/Vol] 4.20 ug/dL Critically low 4.50-12.10 [facility] Comment on above: Performed By: #### T 4, TSH, CMP #### [facility] [address] [address] [address] Teena Aguilar TSHon 01-10-2023 TSH 3.652 uIU/mL Normal 0.358-3.740 [facility] Comment on above: Performed By: #### T 4, TSH, CMP #### [facility] [address] [address] [address] Teena Aguilar Miscellaneouson 05-17-2022 Send Out Report (NOTE) Normal [facility] Comment on above: Result Comment: [...] developed and its performance characteristics determined by [employer]. It has not been cleared or approved by the Food and Drug Administration. This test was performed in a CLIA certified laboratory and is intended for clinical purposes. [facility] Performed By: #### C MIS #### [facility] [address] [place] [address] Gyroscopic Instrument Tester: Yahir Fitzgerald MD Miscellaneouson 05-08-2022 Test Name [id number] Normal [facility] Comment on above: Performed By: #### C MIS #### [facility] [address] [place] [address] Gyroscopic Instrument Tester: Yahir Fitzgerald MD Gabapentinon 05-07-2022 Gabapentin <0.5 Low 2.0-20.0 [facility] Comment on above: Result Comment: (NOT E) INTERPRETIVE INFORMATION: Gabapentin Therapeutic Range: 2 - 20 ug/mL Toxic: Not well established Pharmacokinetics of gabapentin vary widely among patients, particularly those with compromised renal function. Adverse effects may include somnolence, dizziness, ataxia, and fatigue. This test was developed and its performance characteristics determined by [facility] [employer]. It has not been cleared or approved by the [place] Food and Drug Administration. This test was performed in a CLIA certified laboratory and is intended for clinical purposes. Performed By: [employer] [address] [place] [id number] Manager Labor Relations: Marin Panchal MD, PhD Performed By: #### CRIS ARELLANO #### [address] [address] Gyroscopic Instrument Tester: Tam Givens MD #### ACTH #### [address] [address] Gyroscopic Instrument Tester: Doc Garces MD Serotoninon 05-07-2022 Serotonin <10 Low 50-220 [facility] Comment on above: Result Comment: (NOT E) TEST INFORMATION: Serotonin, Serum This test was developed and its performance characteristics determined by [employer]. It has not been cleared or approved by the [place] Food and Drug Administration. This test was performed in a CLIA certified laboratory and is intended for clinical purposes. Performed By: [employer] [address] [place] [address] Manager Labor Relations: Marin Panchal MD, PhD Performed By: #### A CRIS CHENG #### [facility] [address] [place] [address] Gyroscopic Instrument Tester: Tam Givens MD #### ACTH #### [address] [id number] Gyroscopic Instrument Tester: Doc Garces MD Adrenocorticotropinon 2021 Adrenocorticotropin 7 pg/mL Normal 7-69 [facility] Comment on above: Performed By: #### A CRIS CHENG #### [facility] [address] [place], [place] [id number] Gyroscopic Instrument Tester: Tam Givens MD #### ACTH #### [address] [id number] Gyroscopic Instrument Tester: Doc Garces MD CBC AUTO DIFFon 02-16-2022 BASO # 0.0 103/ul Normal 0.0-0.1 [facility] Comment on above: Performed By: #### C BC #### [facility] [address] [place] [address] Dr. Teena Aguilar Basophils/100 WBC (Bld) 0.5 % Normal 0.2-2.0 [facility] Comment on above: Performed By: #### C BC #### [facility] [address] [place] [address] Dr. Teena Aguilar EO # 0.2 103/ul Normal 0.0-0.7 [facility] Comment on above: Performed By: #### C BC #### [facility] [address] [place] [address] Dr. Teena Aguilar Eosinophils/100 WBC (Bld) 3.0 % Normal 0.9-7.0 [facility] Comment on above: Performed By: #### C BC #### [facility] [address] [place] [address] Dr. Teena Aguilar Erythrocyte distribution width (RBC) [Ratio] 12.3 % Normal 11.0-15.0 [facility] Comment on above: Performed By: #### C BC #### [facility] [address] [place] [address] Dr. Teena Aguilar Hematocrit (Bld) [Volume fraction] 45.2 % Normal 42.0-54.0 [facility] Comment on above: Performed By: #### C BC #### [facility] [address] [place] [address] Dr. Teena Aguilar Hemoglobin (Bld) [Mass/Vol] 15.1 g/dL Normal 14.0-18.0 [facility] Comment on above: Performed By: #### C BC #### [facility] [address] [place] [address] Dr. Teena Aguilar IG # 0.01 10e3/ul Normal 0.00-0.03 [facility] Comment on above: Performed By: #### C BC #### [facility] [address] [place] [address] Dr. Teena Aguilar IG % 0.2 % Normal 0.0-0.5 [facility] Comment on above: Performed By: #### C BC #### [facility] [address] [place] [address] Dr. Teena Aguilar LYMPH # 3.0 103/ul Normal 1.2-3.8 [facility] Comment on above: Performed By: #### C BC #### [facility] [address] [place] [address] Dr. Teena Aguilar Lymphocytes/100 WBC (Bld) 50.0 % Normal 20.5-60.0 [facility] Comment on above: Performed By: #### C BC #### [facility] [address] [place] [address] Dr. Teena Aguilar MANUAL DIFF REQ NO Normal [facility] Comment on above: Performed By: #### C BC #### [facility] [address] [place] [address] Dr. Teena Aguilar MCH (RBC) [Entitic mass] 30.4 pg Normal 25.9-34.0 [facility] Comment on above: Performed By: #### C BC #### [facility] [address] [address] [address] Teena Aguilar MCHC (RBC) [Mass/Vol] 33.4 g/dL Normal 29.9-35.2 [facility] Comment on above: Performed By: #### C BC #### [facility] [address] [address] [address] Teena Aguilar MCV (RBC) [Entitic vol] 91.1 fL Normal 80.0-94.0 [facility] Comment on above: Performed By: #### C BC #### [facility] [address] [address] [address] Teena Aguilar MONO # 0.5 103/ul Normal 0.3-0.8 [facility] Comment on above: Performed By: #### C BC #### [facility] [address] [address] [address] Teena Aguilar Monocytes/100 WBC (Bld) 8.6 % Normal 1.7-12.0 [facility] Comment on above: Performed By: #### C BC #### [facility] [address] [address] [address] Teena Aguilar NEUT # 2.3 103/ul Normal 1.4-6.5 [facility] Comment on above: Performed By: #### C BC #### [facility] [address] [address] [address] Teena Aguilar Neutrophils/100 WBC (Bld) 37.7 % Critically low 43.0-7 5.0 [facility] Comment on above: Performed By: #### C BC #### [facility] [address] [address] [address] Teena Aguilar Platelet mean volume (Bld) [Entitic vol] 9.2 fL Critically low 9.5-13.5 [facility] Comment on above: Performed By: #### C BC #### [facility] [address] [address] [address] Teena Aguilar PLT 298 103/ul Normal 150-450 [facility] Comment on above: Performed By: #### C BC #### [facility] [address] [place] [address] Dr. Teena Aguilar RBC 4.96 106/ul Normal 4.70-6.10 [facility] Comment on above: Performed By: #### C BC #### [facility] [address] [place] [address] Dr. Teena Aguilar WBC 6.0 103/ul Normal 4.0-11.0 [facility] Comment on above: Performed By: #### C BC #### [facility] [address] [place] [address] Dr. Teena Aguilar GLYCOHEMOGLOBIN A1Con 2021 ADA RECOMMENDATION SEE BELOW Normal [facility] Comment on above: Result Comment: ADA RECOMMENDED LIMIT 4.0 - 6.0 ADA THERAPEUTIC TARGET < 7.0 ACTION SUGGESTED > 7.0 Performed By: #### A 1C #### [facility] [address] [place] [address] Dr. Teena Aguilar Glucose [Mass/Vol] 111 mg/dL Normal [facility] Comment on above: Performed By: #### A 1C #### [facility] [address] [place] [address] Dr. Teena Aguilar HbA1c (Bld) [Mass fraction] 5.5 % Normal 4.5-6.2 [facility] Comment on above: Performed By: #### A 1C #### [facility] [address] [place] [address] Dr. Teena Aguilar LIPID PROFILEon 02-16-2022 CHOL-HDL RATIO NORM SEE BELOW Normal [facility] Comment on above: Result Comment: 3.3 - 4.4 LOW RISK 4.4 - 7.1 AVERAGE RISK 7.1 - 11.0 MODERATE RISK >11.0 HIGH RISK Performed By: #### B MP, LIPID #### [facility] [address] [place] [address] Dr. Teena Aguilar Cholesterol [Mass/Vol] 205 mg/dL Critically high <=200 [facility] Comment on above: Performed By: #### B MP, LIPID #### [facility] [address] [address] [address] Teena Aguilar Cholesterol in HDL [Mass/Vol] 49 mg/dL Normal 40-60 [facility] Comment on above: Performed By: #### B MP, LIPID #### [facility] [address] [place] [address] Dr. Teena Aguilar Cholesterol in LDL [Mass/Vol] 89.0 mg/dL Normal [facility] Comment on above: Performed By: #### B MP, LIPID #### [facility] [address] [place] [address] Dr. Teena Aguilar Cholesterol.total/Cholest neeraj in HDL [Mass ratio] 4.2 {ratio} Normal [facility] Comment on above: Performed By: #### B MP, LIPID #### [facility] [address] [place] [address] Dr. Teena Aguilar HDL NORMAL > or = 60 mg/dl - LOW CARDIOVASCULAR RISK <40 mg/dl - HIGH CARDIOVASCULAR RISK Normal [facility] Comment on above: Performed By: #### B MP, LIPID #### [facility] [address] [place] [address] Dr. Teena Aguilar LDL CALC NORMAL SEE BELOW Normal [facility] Comment on above: Result Comment: <100 mg/dl OPTIMAL 100 - 129 mg/dl NEAR OR ABOVE OPTIMAL 130 - 159 mg/dl BORDERLINE HIGH 160 - 189 mg/dl HIGH >190 mg/dl VERY HIGH Performed By: #### B MP, LIPID #### [facility] [address] [place] [address] Dr. Teena Aguilar Triglyceride [Mass/Vol] 335 mg/dL Critically high <=150 [facility] Comment on above: Performed By: #### B MP, LIPID #### [facility] [address] [place] [address] Dr. Teena Aguilar VLDL CALC 67.0 mg/dL Normal [facility] Comment on above: Performed By: #### B MP, LIPID #### [facility] [address] [place] [address] Dr. Teena Aguilar PROF CHEM 8 (BAS METB)on Anion gap [Moles/Vol] 11.0 mmol/L Normal Th e [facility] Comment on above: Performed By: #### B MP, LIPID #### [facility] [address] [place] [address] Dr. Teena Aguilar Calcium [Mass/Vol] 9.1 mg/dL Normal 8.5-10.1 [facility] Comment on above: Performed By: #### B MP, LIPID #### [facility] [facility] [address] [place] [address] Dr. Teena Aguilar Chloride [Moles/Vol] 102 mmol/L Normal 98-107 [facility] Comment on above: Performed By: #### B MP, LIPID #### [facility] [address] [place] [address] Dr. Teena Aguilar CO2 [Moles/Vol] 30.3 mmol/L Normal 21.0-32.0 [facility] Comment on above: Performed By: #### B MP, LIPID #### [facility] [address] [place] [address] Dr. Teena Aguilar Creatinine [Mass/Vol] 0.96 mg/dL Normal 0.70-1.30 [facility] Comment on above: Performed By: #### B MP, LIPID #### [facility] [address] [place] [address] Dr. Teena Aguilar EGFR-AF ROMANIAN >60 Normal >=60 [facility] Comment on above: Performed By: #### B MP, LIPID #### [facility] [address] [place] [address] Dr. Teena Aguilar EGFR-NON AF ROMANIAN >60 Normal >=60 [facility] Comment on above: Performed By: #### B MP, LIPID #### [facility] [address] [place] [address] Dr. Teena Aguilar Glucose [Mass/Vol] 100 mg/dL Normal 74-106 [facility] Comment on above: Performed By: #### B MP, LIPID #### [facility] [address] [place] [address] Dr. Teena Aguilar Potassium [Moles/Vol] 4.3 mmol/L Normal 3.5-5.1 [facility] Comment on above: Performed By: #### B MP, LIPID #### [facility] [address] [address] [address] Teena Aguilar Sodium [Moles/Vol] 139 mmol/L Normal 136-145 [facility] Comment on above: Performed By: #### B MP, LIPID #### [facility] [address] [address] [address] Teena Aguilar Urea nitrogen [Mass/Vol] 19.0 mg/dL Critically high 7.0-18 .0 [facility] Comment on above: Performed By: #### B MP, LIPID #### [facility] [address] [address] [address] Teena Aguilar Urea nitrogen/Creatinine [Mass ratio] 19.8 mg/mg Normal [facility] Comment on above: Performed By: #### B MP, LIPID #### [facility] [address] [address] [address] Teena Aguilar Encounters Encounter Date Encounter Type Care Provider Facility Start: 01-19-2023 Encounter for genera l adult medical examination without abnormal findings DR BLANCA KUMAR [facility] Start: 01-10-2023 End: 01-11-[address] BLANCA KUMAR Facility:[facility] Start: 01-10-2023 End: 01-11-2023 Encounter for general adult medical examination without abnormal findings DR BLANCA KUMAR Facility:[facility] Start: 05-08-2022 End: 05-09-2022 ambulatory [facility] Start: 05-08-2022 End: 05-08-2022 Subsequent hospital visit by physician Sr Ferny NGUYEN Work Phone: [facility] Start: 05-03-2022 End: 05-04-2022 ambulatory OTONIEL Thapa [facility] Start: 02-16-2022 End: 02-17-[address] DOCTOR WEST Facility:[facility] Plan of Treatment Date Care Activity Detail Author Start: 06-06-2022 Influenza vaccination Flu vaccine (# 1) [facility] Start: 2008 DTaP/Tdap/Td vaccine (1 - Tdap) DTaP/Tdap/Td vaccine (1 - Tdap) [facility] Start: 1989 COVID-19 Vaccine (#1) COVID-19 Vaccine (#1) [facility] End: 05-08-2022 MISCELLANEOUS TESTING [employer] Phone: Comment on above: Once for 1 Occurrenc es starting 05/08/2022 until 05/08/2022 Payers Date Payer Category Payer Unknown [id number] [id number] 1989 Unknown [id number] 1989 Unknown [id number] [id number] [id number] 1989 Unknown [id number] [id number] [id number] 1959 Private Health Insurance [id number] 1959 Unknown [id number] Social History Date Type Detail Facility Tobacco smoking stat [facility] Tobacco smoking consumption unknown [employer] Phone: Start: 1989 Sex Assigned At Not on file B ON [employer] Phone: Summary Purpose Family History No Family History Records FoundNo Family History Records Found Advance Directives No Advanced Directives Records FoundNo Advanced Directives Records Found Additional Source Comments Care Teams (unrecognized sec tion and content) Mold Making Supervisor Relationship Specialty Start Date End Date Sr Blanca Kumar DO [address] [place] [address] PCP - General Family Medicine 05/03/22 (unrecognized sect ion and content) No Status Records FoundNo Status Records Found INFORMATION SOURCE (unrecogn ized section and content) DATE CREATED AUTHOR 05/18/2022 [facility] DATE CREATED AUTHOR AUTHOR'S ORGANIZ ATION 01/21/2023 [employer] FOR RECORDS PERTAINING TO PATIENTS WHO ARE [...] BE BASED ON THE PRIMARY CLINICAL RECORDS. [facility]. provides no warranty or guarantee of the accuracy or completeness of information in this document.
[2024-01-31 11:10] LABS: Basophils Percent Auto 0.4 % (0.2-2.0); Eosinophils Absolute Auto 0.1 10^3/uL (0.0-0.7); Eosinophils Percent Auto 1.7 % (0.9-7.0); Hematocrit 43.5 % (42.0-54.0); Hemoglobin 15.1 g/dL (14.0-18.0); Immature Granulocytes Abs Auto 0.02 10^3/uL (0.00-0.03); Immature Granulocytes Pct Auto 0.3 % (0.0-0.5); Lymphocytes Absolute Auto 3.7 10^3/uL (1.2-3.8); Lymphocytes Percent Auto 50.3 % (20.5-60.0); Mean Corpuscular HGB Conc 34.7 g/dL (29.9-35.2); Mean Corpuscular Hemoglobin 31.1 pg (25.9-34.0); Mean Corpuscular Volume 89.5 fL (80.0-94.0); Mean Platelet Volume 9.9 fL (9.5-13.5); Monocytes Absolute Auto 0.5 10^3/uL (0.3-0.8); Monocytes Percent Auto 6.9 % (1.7-12.0); Neutrophils Absolute Auto 2.9 10^3/uL (1.4-6.5); Neutrophils Percent Auto 40.4 % (43.0-75.0); Platelet Count 303 10^3/uL (150-450); Red Blood Count 4.86 10^6/uL (4.70-6.10); White Blood Count 7.3 10^3/uL (4.0-11.0)
[2024-01-31 11:36] LABS: Estimated Average Glucose 111 mg/dL; Glycohemoglobin A1C 5.5 % (4.5-6.2)
[2024-01-31 11:56] LABS: Anion Gap 18.8; Calcium 9.6 mg/dL (8.5-10.1); Carbon Dioxide 22.9 mmol/L (21.0-32.0); Chloride 101 mmol/L (98-107); Chol HDL Ratio 4.7; Cholesterol 227 mg/dL (<=200); Estimated GFR (African America >60 (>=60); Estimated GFR (Non-African Ame >60 (>=60); Glucose 86 mg/dL (74-106); HDL Cholesterol 48 mg/dL (40-60); Potassium 3.7 mmol/L (3.5-5.1); Sodium 139 mmol/L (136-145); Triglycerides 322 mg/dL (<=150); VLDL CHOLESTEROL 64.4 mg/dL
== END 2024-01-31 10:23 | disposition home or self-care (01) ==
PROVIDERS: Visit Provider Psychiatry & Neurology Psychiatry
DX: F90.2 Attention-deficit hyperactivity disorder, combined type (principal); F42.2 Mixed obsessional thoughts and acts; F84.5 Asperger's syndrome; R41.83 Borderline intellectual functioning
CPT/HCPCS: 36415; 80048; 80061; 83036; 85025

== ENCOUNTER 2025-09-21 10:18 | Outpatient (OUT) | payer OTHER, SELFPAY ==
--- OUTSIDE RECORDS SUMMARY | 2025-09-21 10:21 | XMS_ITS | Clinical Summary ---
Author Organization [facility] Address [address], [address] [place] [address] Care Team Providers Care Mid Level Practitioner Name Role Phone Ferny Villatoro DO, Charles P Primary Care Provider + Social History Tobacco UseTypesPacks/DayYears UsedDateSmoking Tobacco: Never AssessedSex and Gender InformationValueDate RecordedSex Assigned at BirthNot on fileLegal Sex Male11/15/2012 1:18 PM ESTGender IdentityNot on fileSexual OrientationNot on file Plan of Treatment Not on file Insurance Care Teams Team MemberRelationshipSpecialtyStart DateEnd Albino Stone Sr., DO [address] [place] [address] PCP - GeneralFamily Medicine05/03/22
--- OUTSIDE RECORDS SUMMARY | 2025-09-21 10:21 | XMS_ITS | Clinical Summary ---
Author Organization [employer] [facility] tem Address [id number] [place] [address] Care Team Providers Care Insole Reinforcer Name Role Phone Albino Isaacs DO Primary Care Provider [phone] Allergies No known active allergies Medications * This document contains information received from the source organization and may not represent a complete record from that organization. MedicationSigDispense QuantityRefillsLast FilledStart DateEnd DateStatus venlafaxine (EFFEXOR) 75 mg tablet Take 75 mg by mouth daily.Active venlafaxine XR (EFFEXOR-XR) 150 mg 24 hr capsule Take 150 mg by mouth daily.Active dextroamphetamine-amphetamine (ADDERALL) 20 mg tablet Take 5 mg by mouth 2 (two) times a day.Active OMEGA 7-EQJ-EKG-FISH OIL ORAL Take by mouth daily.Active cyanocobalamin 500 MCG tablet Take 500 mcg by mouth daily.Active pyridoxine, vitamin B6, (B-6) 100 mg tablet Take 100 mg by mouth daily.Active MAGNESIUM ORAL Take 250 mg by mouth.Active CANNABIDIOL, CBD, EXTRACT ORAL Take by mouth.Active QUEtiapine XR (SEROquel XR) 400 mg 24 hr tablet Take 400 mg by mouth daily.1Active Active Problems ProblemNoted DateDiagnosed DateMixed obsessional thoughts and acts05/04/2019 Asperger's czvfiybl88/28/2019 Social History Tobacco UseTypesPacks/DayYears UsedDateSmoking Tobacco: Never AssessedChildcare AnswerDate EjozmbcaLnxkeoxhpZlmngvh57/13/2019EmploymentAnswerDate Recorded SnncysbpcvGvwzfyd70/13/2019Purpose - LifeAnswerDate RecordedPurpose and direction in mmdnSjhabrf35/13/2021ex and Gender InformationValueDate Recorded Sex Assigned at BirthNot on fileLegal NsmWxui32/26/2018 2:19 PM ESTGender IdentityNot on fileSexual OrientationNot on file Plan of Treatment Health MaintenanceDue DateLast DoneCommentsDepression Zhdcgsjky48/22/2001Tobacco Xadirmakn28/22/2001Adult BMI Inxmnlekk02/22/2007DTaP,Tdap and Td Vaccines (1 - Tdap)2008Influenza Iwyidfk0306/06/2025 Medical Devices Not on file Insurance Care Teams Team MemberRelationshipSpecialtyStart DateEnd Albino Isaacs DO PCP - Pfkxrob22/26/18
--- OUTSIDE RECORDS SUMMARY | 2025-09-21 10:21 | XMS_ITS | Patient Health Record ---
Author Organization [facility] Address [address] [place] [address] Care Team Providers Care Tool Shaper Setup Operator Name Role Phone Houston Posey Unavailable [phone] Reason For Referral No Information Social History Tobacco Use: Social History Observation Description Date Details (start date - stop date) Never Smoker NA - NA Smoking History Question Answer Notes Smoking Status NonSmoker Problems Problem Type SNOMED Code ICD Code Onset Dates Problem Status W/U Status Risk Notes Problem Open fracture of mul tiple sites of metacarpus (1150187) Open nondisplaced fracture of third metacarpal bone of right hand, unspecified portion of metacarpal, initial encounter (S62.302B) ActiveconfirmedProblemOpen fracture of multiple sites of metacarpus (3718229) Open nondisplaced fracture of fourth metacarpal bone of right hand, unspecified portion of metacarpal, initial encounter (S62.304B)ActiveconfirmedProblemOpen fracture of multiple sites of metacarpus (5869684)Open nondisplaced fracture of fifth metacarpal bone of right hand, unspecified portion of metacarpal, initial encounter (S62.306B)Activeconfirmed Plan Of Treatment Pending Test Test Name Order Date Work Slip Return to Work/ Full Duty 05/2024 [facility]- HAND 3 VIEW RIGHT [id number] 10/13/2023 Insurance Providers Payer Name Payer Address Payer Phone Subscriber Number Group Number Insured Name Patient Relationship to Insured Coverage Start Date Coverage End Date Medicaid [employer] [place] [address] [place] [id number] [phone] [id number] CANELO PRATTelf - patient is the insured Medical (General) History Surgical History Surgery Date(Month/Year) Right third, fourth and fift h metacarpal fractures with percutaneous pinning 06/30/2023
--- OUTSIDE RECORDS SUMMARY | 2025-09-21 10:21 | XMS_ITS | Clinical Summary ---
Author Organization [facility] Address [address] [place], [place] [address] Care Team Providers Care Reheater Helper Name Role Phone Fanny Mcmanus Primary Care Provider Allergies Active AllergyReactionsCriticalityNoted DateCommentsCane Sugar [Other]12/27/2002 Corn12/27/2002 Medications MedicationSigDispense QuantityRefillsLast FilledStart DateEnd DateStatus COMPOUNDED PRESCRIPTION respirdol-1mg po vwl311Active CATAPRES 0.3MG TABLET Take one(1) tablet daily at bedtime.Active CONCERTA 54MG TABLET SA Take one(1) tablet daily. Active LUVOX 25MG TABLET Take one(1) tablet two(2) times daily. 60 Active CONCERTA 54MG TABLET SA Take one(1) tablet daily. Active CONCERTA 54MG TABLET SA Take one(1) tablet daily. Active CATAPRES 0.1MG TABLET Take one(1) tablet daily at bedtime. Active RISPERDAL 1MG TABLET Take one(1) tablet two(2) times daily. 60 Active Active Problems ProblemNoted DateDiagnosed DateASPERGER EKQUIGXU38/24/2003 Social History Tobacco UseTypesPacks/DayYears UsedDateSmoking Tobacco: Never AssessedSex and Gender InformationValueDate RecordedSex Assigned at BirthNot on fileLegal Sex Male09/06/2012 9:55 AM ESTGender IdentityNot on fileSexual OrientationNot on file Last Filed Vital Signs Vital SignReadingTime TakenCommentsBlood Yedwzuni16/64007/05/2003 3:20 PM EDT Vujal7113 4:00 PM ESTTemperature--Respiratory Rate--Oxygen Saturation-- Inhaled Oxygen Concentration--Gyqbho71.2 kg (106 lb 4.2 oz)07/05/2003 3:20 PM YNWOhatfp189.9 cm (5' 4.53 )07/05/2003 3:20 PM EDTBody Mass Index17.9407/05/2003 3:20 PM EDT Plan of Treatment Health MaintenanceDue DateLast DoneCommentsAnxiety Ahnutunnr50/22/2007Depression Xujdpihjh76/22/2007HIV Peyrgnpam59/22/2007Hepatitis C Snnfvzpps99/22/2007 DTaP,Tdap,Td Vaccine (1 - Tdap)2008Hepatitis B Vaccine (1 of 3 - 19+ 3- dose series)2008HPV Vaccine (1 - 3-dose SCDM series)2016Lipid Yxupovzgq19/22/2024Covid-19 Vaccine (1 - 2024- season)2025Influenza Vaccine (#1)2025 Care Teams Team MemberRelationshipSpecialtyStart DateEnd [place] [address] PCP - Llfnlas67/31/02
[2025-09-21 10:56] LABS: Hematocrit 45.5 % (42.0-54.0); Hemoglobin 16.0 g/dL (14.0-18.0); Immature Granulocytes Abs Auto 0.02 10^3/uL (0.00-0.03); Immature Granulocytes Pct Auto 0.2 % (0.0-0.5); Lymphocytes Absolute Auto 3.5 10^3/uL (1.2-3.8); Mean Corpuscular HGB Conc 35.2 g/dL (29.9-35.2); Mean Corpuscular Hemoglobin 31.6 pg (25.9-34.0); Mean Corpuscular Volume 89.9 fL (80.0-94.0); Platelet Count 331 10^3/uL (150-450); Red Blood Count 5.06 10^6/uL (4.70-6.10); White Blood Count 8.3 10^3/uL (4.0-11.0)
[2025-09-21 11:46] LABS: Anion Gap 12.8; Blood Urea Nitrogen 15.0 mg/dL (7.0-18.0); Calcium 9.5 mg/dL (8.5-10.1); Carbon Dioxide 26.4 mmol/L (21.0-32.0); Chloride 103 mmol/L (98-107); Cholesterol 217 mg/dL (<=200); Estimated GFR (African America >60 (>=60 mL/min/1.73m^2); Estimated GFR (Non-African Ame >60 (>=60 mL/min/1.73m^2); Glucose 88 mg/dL (74-106); HDL Cholesterol 49 mg/dL (40-60); Potassium 4.2 mmol/L (3.5-5.1); Sodium 138 mmol/L (136-145); Triglycerides 185 mg/dL (<=150); VLDL CHOLESTEROL 37.0 mg/dL
== END 2025-09-21 10:19 | disposition home or self-care (01) ==
LOC: LAB 10:19
PROVIDERS: Visit Provider Nurse Practitioner
DX: F90.2 Attention-deficit hyperactivity disorder, combined type (principal); F42.2 Mixed obsessional thoughts and acts; F84.5 Asperger's syndrome; R41.83 Borderline intellectual functioning
CPT/HCPCS: 36415; 80048; 80061; 83036; 85025